=== PATIENT | male | born 1980 | race Caucasian/White ===

== ENCOUNTER 2019-02-28 15:36 | Outpatient (CLI) | payer MEDICAID, SELFPAY ==
[2019-02-28 16:15] LABS: Abs Immature Grans 0.04 k/cumm (0.0-0.09); Absolute Basophil Count 0.07 k/cumm (0.0-0.2); Absolute Eosinophil Count 0.32 k/cumm (0.0-0.7); Absolute Lymphocyte Count 2.35 k/cumm (1.2-3.4); Absolute Monocyte Count 0.73 k/cumm (0.11-0.7); Basophils % 0.9; Eosinophils % 4.3; HCT 43.6 % (40.0-50.0); HGB 14.9 g/dL (13.5-17.5); Immature Grans % 0.5; Lymphocytes % 31.7; Mean Corp. HGB Concentration 34.2 g/dL (32.0-36.0); Mean Corpuscular Hemoglobin 29.1 pg (27.0-33.0); Mean Corpuscular Volume 85.2 fL (80-95); Mean Platelet Volume 9.5 fL (8.0-11.0); Monocytes % 9.9; Neutrophils % 52.7; Platelet Count 242 x1000/uL (130-400); RBC 5.12 m/cumm (4.50-6.00); RBC Distribution Width 13.1 % (11.8-14.1); White Blood Cell Count 7.41 k/cumm (4.4-10.8)
[2019-02-28 17:13] LABS: ALT 55 U/L (16-63); AST 33 U/L (15-37); Albumin 3.9 g/dL (3.4-5.0); Alkaline Phosphatase 111 U/L (46-116); Anion Gap 12.6 mmol/L (3-11); BUN 13 mg/dL (7-18); Bilirubin, Total 0.2 mg/dL (0.2-1.0); CO2 24.4 mmol/L (21.0-32.0); CREATININE 1.05 mg/dL (0.70-1.30); Calcium 8.9 mg/dL (8.5-10.1); Chloride 104 mmol/L (98-107); Glucose 121 mg/dL (70-100); Potassium 4.2 mmol/L (3.5-5.1); Sodium 141 mmol/L (136-145); Total Protein 7.2 g/dL (6.4-8.2)
[2019-03-03 10:58] LABS: Syphilis Serology (RPR) Negative (Negative)
[2019-03-03 11:32] LABS: Hepatitis C Ab w Rflx HCV PCR Reactive (NEGAT)
[2019-03-03 11:34] LABS: HIV-1/2 Ag & Ab Screen Negative (NEGAT)
[2019-03-05 14:03] LABS: HCV RNA Detection Quantitative 15030 IU/mL (UNDECT)
== END 2019-02-28 15:56 ==
PROVIDERS: PCP Family Medicine; Visit Provider Nurse Practitioner Family
DX: F11.20 Opioid dependence, uncomplicated (principal); Z79.899 Other long term (current) drug therapy
CPT/HCPCS: 36415; 80053; 86803; 87389; 85025; 86592; 87522